=== PATIENT | male | born 1990 | race Caucasian/White ===

== ENCOUNTER 2020-11-07 21:59 | Inpatient (IN) | payer MEDICAID ==
[~2020-11-07] VITALS: Ht 185.4 cm; Wt 118.0 kg
[2020-11-07 23:28] LABS: BASOPHILS # (AUTO) 0.1 X10'3 (0-0.2); BASOPHILS % (AUTO) 0.4 % (0-1); EOSINOPHILS # (AUTO) 0.2 X10'3 (0-0.9); EOSINOPHILS % (AUTO) 1.1 % (0-6); HEMATOCRIT 38.6 % (42.0-52.0); HEMOGLOBIN 12.8 g/dl (14.0-17.9); LYMPHOCYTES # (AUTO) 1.8 X10'3 (1.1-4.8); MEAN CORPUSCULAR HEMOGLOBIN 26.7 PG (27.0-31.0); MEAN CORPUSCULAR HGB CONC 33.1 g/dL (33.0-36.5); MEAN CORPUSCULAR VOLUME 80.8 FL (78-98); MEAN PLATELET VOLUME 8.2 FL (7.4-10.4); MONOCYTES # (AUTO) 1.7 X10'3 (0-0.9); MONOCYTES % (AUTO) 8.9 % (2-12); NEUTROPHILS # (AUTO) 15.7 X10'3 (1.8-7.7); NEUTROPHILS % (AUTO) 80.6 % (42-75); PLATELET COUNT 391 X10'3 (140-440); RED BLOOD COUNT 4.77 X10'6 (4.70-6.10); RED CELL DISTRIBUTION WIDTH 16.2 % (11.5-14.5); WHITE BLOOD COUNT 19.5 X10'3 (4.5-11.0)
[2020-11-07 23:46] LABS: ALANINE AMINOTRANSFERASE 29 U/L (12-78); ALBUMIN 2.4 G/DL (3.4-5.0); ALBUMIN/GLOBULIN RATIO 0.5 (1.1-1.5); ALKALINE PHOSPHATASE 102 IU/L (46-116); ANION GAP 13 (8-16); ASPARTATE AMINO TRANSFERASE 16 U/L (10-37); BILIRUBIN,TOTAL 0.3 MG/DL (0.1-1.0); BLOOD UREA NITROGEN 6 MG/DL (7-18); BUN/CREATININE RATIO 8.1 (5.4-32.0); CALCIUM 8.4 MG/DL (8.5-10.1); CHLORIDE 104 MMOL/L (99-107); CREATININE 0.74 MG/DL (0.60-1.10); GLUCOSE 119 MG/DL (70-104); POTASSIUM 3.1 MMOL/L (3.5-5.1); SODIUM 138 MMOL/L (135-145); TOTAL CARBON DIOXIDE 20.6 MMOL/L (24-32); TOTAL PROTEIN 7.4 G/DL (6.4-8.2); eGFR > 90 ML/MIN
[2020-11-07 23:53] LABS: ANISOCYTOSIS 1+; PLATELET ESTIMATE NORMAL
[2020-11-07 23:54] LABS: BANDS% (MANUAL) 4 % (0-10); LYMPHOCYTES % (MANUAL) 13 % (21-51); MONOCYTES % (MANUAL) 5 % (2-12); NEUTROPHILS % (MANUAL) 73 % (42-75); TOTAL CELLS COUNTED 100
[2020-11-07 23:55] LABS: METAMYLEOCYTES% (MANUAL) 4 % (0-0); MYELOCYTES % (MANUAL) 1 % (0-0)
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
--- NOTE | 2020-11-08 01:43 | NUR ---
Dr. Louise at bedside.
--- NOTE | 2020-11-08 02:48 | NUR ---
Pt repositioned and turned to right side.
--- NOTE | 2020-11-08 03:26 | NUR ---
Dr. Louise updated that Pts lactic is 2.4 and K 3.1. No new orders received.
[2020-11-08] MEDS ORDERED: piperacillin/tazo 3.375gm/50ml 50 ML IV ONE (03:35)
[2020-11-08] MEDS ORDERED: magnesium 4gm in 100ml NS 100 ML IV PRN (03:40)
[2020-11-08] MEDS ORDERED: HYDROcodone/acetaminophen 5mg/325mg tablet PO PRN (03:40)
[2020-11-08] MEDS ORDERED: potassium Cl 40MEQ/1/2NS 520ml 520 ML IV PRN ×2 (03:40)
[2020-11-08] MEDS ORDERED: acetaminophen 325mg tablet PO PRN ×2 (03:40)
[2020-11-08] MEDS ORDERED: magnesium hydroxide 30ml (MOM) UD suspension PO PRN (03:40)
[2020-11-08] MEDS ORDERED: potassium Cl 20 mEq SR tablet PO PRN (03:40)
[2020-11-08] MEDS ORDERED: iohexol 300mg/ml 100ml inj. ONE ×2 (03:40→14:37)
[2020-11-08] MEDS ORDERED: magnesium Cl slow-release 64mg tablet PO PRN (03:40)
[2020-11-08] MEDS ORDERED: morphine 2 MG/ML inj. syringe IV PRN ×2 (03:40)
[2020-11-08] MEDS ORDERED: magnesium 2GM in 50ml NS 50 ML IV PRN (03:40)
[2020-11-08] MEDS ORDERED: APIX5TAB3 PO (03:59)
[2020-11-08] MEDS ORDERED: SPIR25TA5 PO (03:59)
[2020-11-08] MEDS ORDERED: OXYB5TAB16 PO (03:59)
[2020-11-08] MEDS ORDERED: MELO-100 PO (03:59)
--- NOTE | 2020-11-08 04:02 | NUR ---
DR. BAUM CANCELLED THE ORDER FOR CT OF RLE PT HAD ONE DONE YESTERDAY AT [facility] AND THE READ IS IN PTS PACKET. 2 HR LACTIC DRAWN.
[2020-11-08] MEDS: vancomycin/NS 1 GM ADD-VANTAGE 250 ML IV SCH ×2 (04:33→12:59)
--- NOTE | 2020-11-08 05:04 | NUR ---
Pt turned onto right side. mcginnis cath emptied , total 825 cc's out. Pt sleeping intermittently. vss. wound photos taken.
--- NOTE | 2020-11-08 05:50 | NUR ---
dr caputo at bedside for admission.
--- NOTE | 2020-11-08 06:25 | NUR ---
IPA 349B, REPORT TO YASMANY GOMEZ, SURGICAL. PT WITH STABLE VS. REMAINS ON HOSPITAL BED.
--- NOTE | 2020-11-08 06:26 | NUR ---
Patient in room . I have received report from [place] JADE and had the opportunity to ask questions and assume patient care.
[2020-11-08 08:00] VITALS: BP 124/74
[2020-11-08] MEDS: K and/or MAG REPLACEMENT MC SCH ×2 (08:00→20:00)
[2020-11-08] MEDS ORDERED: piperacillin/tazo 4.5gm/100ml 100 ML IV SCH (08:00)
[2020-11-08] MEDS ORDERED: enoxaparin 40mg/0.4ml syringe SUBCUT SCH (08:00)
[2020-11-08 12:00] VITALS: BP 126/77
[2020-11-08] MEDS ORDERED: oxybutynin 5mg tablet PO PRN (13:05)
[2020-11-08] MEDS: cefazolin/dext.iso 2gm/100ml 100 ML IV SCH ×2 (15:44→19:38)
[2020-11-08] MEDS: CLINDAMYCIN/D5W 900mg/50ml 50 ML IV SCH (17:22)
--- NOTE | 2020-11-08 18:16 | NUR ---
Problems reprioritized. Patient report given, questions answered & plan of care reviewed with Jerome JADE.
--- NOTE | 2020-11-08 18:33 | NUR ---
Patient in room FERMIN 349. I have received report from Anahi JADE and had the opportunity to ask questions and assume patient care.
[2020-11-08 19:22] VITALS: BP 109/58
[2020-11-08] MEDS: apixaban 5mg tablet PO SCH (19:39)
[2020-11-08] MEDS: lactobacillus rhamnosus 10,000 MMU CELLS/CAPSULE PO SCH (19:39)
[2020-11-08] MEDS: spironolactone 25 MG tablet PO SCH (19:40)
--- NOTE | 2020-11-08 22:46 | NUR ---
Received report from [facility] that it was unclear if patient had their potassium replaced in the ER, and after discussing the situation with the [facility] charge, they decided to leave the potassium unreplaced and to readdress the potassium in the morning after new labs were drawn. I am following with this plan. Jerome JADE
[2020-11-08] MEDS: normal saline 1000ml 1,000 ML IV SCH (23:33)
[2020-11-09 00:09] VITALS: BP 148/73
[2020-11-09] MEDS: CLINDAMYCIN/D5W 900mg/50ml 50 ML IV SCH ×3 (00:11→16:00)
[2020-11-09] MEDS: diphenhydrAMINE 25mg capsule PO PRN (00:46)
[2020-11-09] MEDS: cefazolin/dext.iso 2gm/100ml 100 ML IV SCH ×4 (02:14→20:18)
[2020-11-09] MEDS ORDERED: VANCOMYCIN LEVEL IV ONE (03:30)
[2020-11-09 04:38] LABS: BASOPHILS # (AUTO) 0.1 X10'3 (0-0.2); BASOPHILS % (AUTO) 0.7 % (0-1); EOSINOPHILS # (AUTO) 0.4 X10'3 (0-0.9); EOSINOPHILS % (AUTO) 2.1 % (0-6); HEMATOCRIT 35.9 % (42.0-52.0); HEMOGLOBIN 11.7 g/dl (14.0-17.9); LYMPHOCYTES % (AUTO) 10.1 % (21-51); MEAN CORPUSCULAR HEMOGLOBIN 25.9 PG (27.0-31.0); MEAN CORPUSCULAR HGB CONC 32.5 g/dL (33.0-36.5); MEAN CORPUSCULAR VOLUME 79.8 FL (78-98); MONOCYTES # (AUTO) 1.3 X10'3 (0-0.9); MONOCYTES % (AUTO) 6.6 % (2-12); NEUTROPHILS # (AUTO) 15.6 X10'3 (1.8-7.7); NEUTROPHILS % (AUTO) 80.5 % (42-75); PLATELET COUNT 407 X10'3 (140-440); RED CELL DISTRIBUTION WIDTH 15.7 % (11.5-14.5); WHITE BLOOD COUNT 19.4 X10'3 (4.5-11.0)
[2020-11-09 04:53] LABS: ALANINE AMINOTRANSFERASE 20 U/L (12-78); ALBUMIN 2.1 G/DL (3.4-5.0); ALBUMIN/GLOBULIN RATIO 0.5 (1.1-1.5); ALKALINE PHOSPHATASE 83 IU/L (46-116); ANION GAP 9 (8-16); ASPARTATE AMINO TRANSFERASE 11 U/L (10-37); BILIRUBIN,TOTAL 0.3 MG/DL (0.1-1.0); BLOOD UREA NITROGEN 8 MG/DL (7-18); CALCIUM 7.8 MG/DL (8.5-10.1); CHLORIDE 107 MMOL/L (99-107); CREATININE 0.57 MG/DL (0.60-1.10); GLUCOSE 91 MG/DL (70-104); POTASSIUM 3.3 MMOL/L (3.5-5.1); SODIUM 140 MMOL/L (135-145); TOTAL CARBON DIOXIDE 23.6 MMOL/L (24-32); TOTAL PROTEIN 6.6 G/DL (6.4-8.2); eGFR > 90 ML/MIN
[2020-11-09 04:54] LABS: MAGNESIUM 2.2 MG/DL (1.5-2.4)
[2020-11-09 05:01] LABS: BANDS% (MANUAL) 2 % (0-10); EOSINOPHILS % (MANUAL) 1 % (0-6); LYMPHOCYTES % (MANUAL) 14 % (21-51); METAMYLEOCYTES% (MANUAL) 2 % (0-0); MONOCYTES % (MANUAL) 5 % (2-12); MYELOCYTES % (MANUAL) 1 % (0-0); NEUTROPHILS % (MANUAL) 75 % (42-75); TOTAL CELLS COUNTED 100
[2020-11-09 05:02] LABS: MICROCYTOSIS 1+; PLATELET ESTIMATE NORMAL
[2020-11-09 06:07] LABS: CHOL/HDL RATIO 4.8 (0.00-4.99); CHOLESTEROL 111 MG/DL (0-200); HDL CHOLESTEROL 23 MG/DL (35-60); TRIGLYCERIDES 107 MG/DL (20-135); VANCOMYCIN,TROUGH 2.5 UG/ML (6.0-14.0)
[2020-11-09 06:08] LABS: LDL CHOLESTEROL 67 MG/DL (50-100)
[2020-11-09 07:00] VITALS: BP 130/81
--- NOTE | 2020-11-09 07:02 | NUR ---
Patient in room FERMIN 349. I have received report from YASMANY Cano and had the opportunity to ask questions and assume patient care.
--- NOTE | 2020-11-09 07:36 | NUR ---
Problems reprioritized. Patient report given, questions answered & plan of care reviewed with Marj JADE.
[2020-11-09] MEDS: K and/or MAG REPLACEMENT MC SCH ×2 (08:00→20:00)
[2020-11-09] MEDS: MELOXICAM 7.5MG TABLET PO SCH (08:00)
[2020-11-09] MEDS: lactobacillus rhamnosus 10,000 MMU CELLS/CAPSULE PO SCH ×2 (08:18→21:32)
[2020-11-09] MEDS: apixaban 5mg tablet PO SCH ×2 (08:18→21:32)
[2020-11-09] MEDS: potassium Cl 20 mEq SR tablet PO PRN ×2 (08:19→21:31)
[2020-11-09] MEDS: spironolactone 25 MG tablet PO SCH ×2 (08:19→21:32)
[2020-11-09 11:00] VITALS: BP 145/86
--- NOTE | 2020-11-09 18:33 | NUR ---
Problems reprioritized. Patient report given, questions answered & plan of care reviewed with Lorenzo Pisano.
--- NOTE | 2020-11-09 18:35 | NUR ---
Patient in room FERMIN 349. I have received report from MELISSA JADE and had the opportunity to ask questions and assume patient care.
[2020-11-09 20:00] VITALS: BP 124/77
[2020-11-09] MEDS: ondansetron/PF 4mg/2ml inj IV PRN (20:22)
[2020-11-09] MEDS: mag hydrox/Alum hydrox/simeth 30ml oral suspension PO PRN (21:33)
[2020-11-10] VITALS: BP 149/81
[2020-11-10] MEDS: CLINDAMYCIN/D5W 900mg/50ml 50 ML IV SCH ×4 (00:28→23:29)
[2020-11-10] MEDS: cefazolin/dext.iso 2gm/100ml 100 ML IV SCH ×4 (02:20→21:17)
--- NOTE | 2020-11-10 06:39 | NUR ---
Patient in room FERMIN 349. I have received report from YASMANY Pisano and had the opportunity to ask questions and assume patient care.
[2020-11-10 07:00] VITALS: BP 120/44
[2020-11-10 07:12] LABS: BASOPHILS # (AUTO) 0.1 X10'3 (0-0.2); BASOPHILS % (AUTO) 0.4 % (0-1); EOSINOPHILS # (AUTO) 0.4 X10'3 (0-0.9); EOSINOPHILS % (AUTO) 2.3 % (0-6); HEMATOCRIT 36.1 % (42.0-52.0); HEMOGLOBIN 11.8 g/dl (14.0-17.9); LYMPHOCYTES # (AUTO) 1.7 X10'3 (1.1-4.8); LYMPHOCYTES % (AUTO) 11.4 % (21-51); MEAN CORPUSCULAR HEMOGLOBIN 26.1 PG (27.0-31.0); MEAN CORPUSCULAR HGB CONC 32.7 g/dL (33.0-36.5); MEAN CORPUSCULAR VOLUME 79.8 FL (78-98); MEAN PLATELET VOLUME 8.2 FL (7.4-10.4); MONOCYTES # (AUTO) 1.1 X10'3 (0-0.9); MONOCYTES % (AUTO) 7.3 % (2-12); NEUTROPHILS % (AUTO) 78.6 % (42-75); PLATELET COUNT 497 X10'3 (140-440); RED BLOOD COUNT 4.52 X10'6 (4.70-6.10); RED CELL DISTRIBUTION WIDTH 16.1 % (11.5-14.5); WHITE BLOOD COUNT 15.3 X10'3 (4.5-11.0)
[2020-11-10 07:25] LABS: ALANINE AMINOTRANSFERASE 18 U/L (12-78); ALBUMIN 2.3 G/DL (3.4-5.0); ALBUMIN/GLOBULIN RATIO 0.5 (1.1-1.5); ALKALINE PHOSPHATASE 84 IU/L (46-116); ANION GAP 10 (8-16); ASPARTATE AMINO TRANSFERASE 14 U/L (10-37); BILIRUBIN,TOTAL 0.3 MG/DL (0.1-1.0); BLOOD UREA NITROGEN 6 MG/DL (7-18); BUN/CREATININE RATIO 9.5 (5.4-32.0); CALCIUM 7.8 MG/DL (8.5-10.1); CHLORIDE 107 MMOL/L (99-107); CREATININE 0.63 MG/DL (0.60-1.10); GLUCOSE 82 MG/DL (70-104); MAGNESIUM 2.5 MG/DL (1.5-2.4); POTASSIUM 3.3 MMOL/L (3.5-5.1); SODIUM 140 MMOL/L (135-145); TOTAL CARBON DIOXIDE 23.3 MMOL/L (24-32); TOTAL PROTEIN 7.1 G/DL (6.4-8.2); eGFR > 90 ML/MIN
[2020-11-10] MEDS: lactobacillus rhamnosus 10,000 MMU CELLS/CAPSULE PO SCH ×2 (07:44→21:17)
[2020-11-10] MEDS: apixaban 5mg tablet PO SCH ×2 (07:44→21:18)
[2020-11-10] MEDS: potassium Cl 20 mEq SR tablet PO PRN ×4 (07:45→17:49)
[2020-11-10] MEDS: spironolactone 25 MG tablet PO SCH ×2 (07:47→21:20)
[2020-11-10] MEDS: MELOXICAM 7.5MG TABLET PO SCH (07:47)
[2020-11-10] MEDS: K and/or MAG REPLACEMENT MC SCH ×2 (08:00→20:00)
[2020-11-10 11:00] VITALS: BP 134/84
[2020-11-10] MEDS ORDERED: bisacodyl 10mg suppository rectal RC PRN (11:35)
[2020-11-10 15:25] LABS: ANISOCYTOSIS 1+; MICROCYTOSIS 1+; PLATELET ESTIMATE INCREASED; TOTAL CELLS COUNTED 100
[2020-11-10] MEDS: baclofen 10mg tablet PO SCH ×2 (16:48→21:18)
[2020-11-10] MEDS: lactulose 20gm/30ml cup PO SCH (17:49)
--- NOTE | 2020-11-10 18:42 | NUR ---
Problems reprioritized. Patient report given, questions answered & plan of care reviewed with YASMANY Pisano.
[2020-11-10 20:00] VITALS: BP_SYST 116; BP_SYST 137; BP_DIAS 59; BP_DIAS 83
[2020-11-10] MEDS ORDERED: lactulose 20gm/30ml cup PO SCH (20:00)
[2020-11-10] MEDS: normal saline 1000ml 1,000 ML IV SCH (21:22)
[2020-11-10] MEDS: nystatin 15 GM powder TP SCH (21:25)
[2020-11-10] MEDS: ondansetron/PF 4mg/2ml inj IV PRN (23:26)
[2020-11-11] VITALS: BP 137/83
[2020-11-11] MEDS: lactulose 20gm/30ml cup PO SCH ×6 (02:00→20:00)
[2020-11-11] MEDS: cefazolin/dext.iso 2gm/100ml 100 ML IV SCH ×4 (02:57→20:42)
[2020-11-11 06:48] LABS: BASOPHILS # (AUTO) 0.1 X10'3 (0-0.2); BASOPHILS % (AUTO) 0.4 % (0-1); EOSINOPHILS # (AUTO) 0.1 X10'3 (0-0.9); EOSINOPHILS % (AUTO) 0.3 % (0-6); HEMATOCRIT 38.2 % (42.0-52.0); HEMOGLOBIN 12.4 g/dl (14.0-17.9); LYMPHOCYTES # (AUTO) 1.1 X10'3 (1.1-4.8); LYMPHOCYTES % (AUTO) 3.9 % (21-51); MEAN CORPUSCULAR HEMOGLOBIN 26.5 PG (27.0-31.0); MEAN CORPUSCULAR HGB CONC 32.6 g/dL (33.0-36.5); MEAN CORPUSCULAR VOLUME 81.2 FL (78-98); MEAN PLATELET VOLUME 8.4 FL (7.4-10.4); MONOCYTES # (AUTO) 0.7 X10'3 (0-0.9); MONOCYTES % (AUTO) 2.4 % (2-12); NEUTROPHILS # (AUTO) 26.7 X10'3 (1.8-7.7); PLATELET COUNT 569 X10'3 (140-440); RED CELL DISTRIBUTION WIDTH 16.1 % (11.5-14.5)
--- NOTE | 2020-11-11 06:50 | NUR ---
Problems reprioritized. Patient report given, questions answered & plan of care reviewed with FAYE JADE.
[2020-11-11 06:56] LABS: WHITE BLOOD COUNT 28.7 X10'3 (4.5-11.0)
[2020-11-11 07:00] VITALS: BP 151/93
[2020-11-11 07:16] LABS: ALANINE AMINOTRANSFERASE 19 U/L (12-78); ALBUMIN 2.5 G/DL (3.4-5.0); ALBUMIN/GLOBULIN RATIO 0.5 (1.1-1.5); ALKALINE PHOSPHATASE 86 IU/L (46-116); ANION GAP 11 (8-16); ASPARTATE AMINO TRANSFERASE 19 U/L (10-37); BILIRUBIN,TOTAL 0.3 MG/DL (0.1-1.0); BLOOD UREA NITROGEN 6 MG/DL (7-18); BUN/CREATININE RATIO 10.2 (5.4-32.0); CALCIUM 8.2 MG/DL (8.5-10.1); CHLORIDE 105 MMOL/L (99-107); CREATININE 0.59 MG/DL (0.60-1.10); GLUCOSE 111 MG/DL (70-104); MAGNESIUM 2.2 MG/DL (1.5-2.4); POTASSIUM 4.2 MMOL/L (3.5-5.1); SODIUM 139 MMOL/L (135-145); TOTAL PROTEIN 7.6 G/DL (6.4-8.2); eGFR > 90 ML/MIN
--- NOTE | 2020-11-11 07:23 | NUR ---
PAGER ID: [phone] MESSAGE: Ajay Ye 349B increase in WBC critical value 28.7. Want more BC now? Carolina [id number]
[2020-11-11 07:55] LABS: TOTAL CELLS COUNTED 100
[2020-11-11 07:56] LABS: ANISOCYTOSIS 1+; PLATELET ESTIMATE INCREASED; POLYCHROMASIA 1+; TOXIC GRANULATION 1+
[2020-11-11] MEDS: K and/or MAG REPLACEMENT MC SCH ×2 (08:00→20:00)
[2020-11-11] MEDS: CLINDAMYCIN/D5W 900mg/50ml 50 ML IV SCH ×2 (08:54→16:00)
[2020-11-11] MEDS: spironolactone 25 MG tablet PO SCH ×2 (08:55→20:45)
[2020-11-11] MEDS: lactobacillus rhamnosus 10,000 MMU CELLS/CAPSULE PO SCH ×2 (08:56→20:45)
[2020-11-11] MEDS: apixaban 5mg tablet PO SCH (08:57)
[2020-11-11] MEDS: baclofen 10mg tablet PO SCH ×2 (08:57→15:17)
[2020-11-11] MEDS: HYDROcodone/acetaminophen 10/325mg tab PO PRN ×2 (08:58→17:23)
[2020-11-11] MEDS: nystatin 15 GM powder TP SCH ×3 (09:03→20:53)
[2020-11-11 11:00] VITALS: BP 135/64
[2020-11-11 11:02] LABS: OCCULT BLOOD STOOL POSITIVE (Neg)
--- NOTE | 2020-11-11 13:57 | NUR ---
PAGER ID: [phone] MESSAGE: Ajay Ye [id number] Just FYI occult positive. Protonix? Carolina [id number]
[2020-11-11 14:32] LABS: HEMATOCRIT 35.9 % (42.0-52.0); HEMOGLOBIN 11.6 g/dl (14.0-17.9); MEAN CORPUSCULAR HEMOGLOBIN 26.3 PG (27.0-31.0); MEAN CORPUSCULAR HGB CONC 32.3 g/dL (33.0-36.5); MEAN CORPUSCULAR VOLUME 81.3 FL (78-98); PLATELET COUNT 489 X10'3 (140-440); RED BLOOD COUNT 4.42 X10'6 (4.70-6.10); WHITE BLOOD COUNT 23.5 X10'3 (4.5-11.0)
[2020-11-11] MEDS: pantoprazole 40MG/NS 100ML BAG 100 ML IV SCH ×3 (14:48→19:18)
[2020-11-11 18:00] VITALS: BP 121/57
--- NOTE | 2020-11-11 18:25 | NUR ---
Gave report to Sonia Scott RN. She is aware pt. scheduled for EGD in AM at 8am.
--- NOTE | 2020-11-11 19:10 | NUR ---
Spoke with [place] community health worker about getting a wound care bed for this pt. States the person who provides these beds is gone for the weekend but that she will look into it and check downstairs.
[2020-11-11 20:59] LABS: HEMATOCRIT 35.3 % (42.0-52.0); HEMOGLOBIN 11.4 g/dl (14.0-17.9); MEAN CORPUSCULAR HEMOGLOBIN 26.1 PG (27.0-31.0); MEAN CORPUSCULAR HGB CONC 32.2 g/dL (33.0-36.5); MEAN CORPUSCULAR VOLUME 81.2 FL (78-98); MEAN PLATELET VOLUME 8.6 FL (7.4-10.4); PLATELET COUNT 496 X10'3 (140-440); RED BLOOD COUNT 4.35 X10'6 (4.70-6.10); RED CELL DISTRIBUTION WIDTH 15.9 % (11.5-14.5); WHITE BLOOD COUNT 21.3 X10'3 (4.5-11.0)
[2020-11-12] VITALS (9 sets, daily range): BP systolic 95–187; BP diastolic 62–96
[2020-11-12] MEDS: pantoprazole 40MG/NS 100ML BAG 100 ML IV SCH ×5 (00:35→19:51)
[2020-11-12] MEDS: CLINDAMYCIN/D5W 900mg/50ml 50 ML IV SCH ×3 (00:35→16:44)
[2020-11-12] MEDS: baclofen 10mg tablet PO SCH ×3 (00:37→16:44)
[2020-11-12] MEDS: lactulose 20gm/30ml cup PO SCH ×4 (02:00→19:54)
[2020-11-12] MEDS: cefazolin/dext.iso 2gm/100ml 100 ML IV SCH ×4 (04:33→20:09)
[2020-11-12 05:33] LABS: BASOPHILS # (AUTO) 0.1 X10'3 (0-0.2); BASOPHILS % (AUTO) 0.5 % (0-1); EOSINOPHILS # (AUTO) 0.5 X10'3 (0-0.9); EOSINOPHILS % (AUTO) 2.6 % (0-6); HEMATOCRIT 35.2 % (42.0-52.0); HEMOGLOBIN 11.4 g/dl (14.0-17.9); LYMPHOCYTES # (AUTO) 2.1 X10'3 (1.1-4.8); LYMPHOCYTES % (AUTO) 11.2 % (21-51); MEAN CORPUSCULAR HEMOGLOBIN 26.5 PG (27.0-31.0); MEAN CORPUSCULAR HGB CONC 32.4 g/dL (33.0-36.5); MEAN CORPUSCULAR VOLUME 81.9 FL (78-98); MEAN PLATELET VOLUME 8.4 FL (7.4-10.4); MONOCYTES # (AUTO) 1.1 X10'3 (0-0.9); MONOCYTES % (AUTO) 6.1 % (2-12); NEUTROPHILS # (AUTO) 14.8 X10'3 (1.8-7.7); NEUTROPHILS % (AUTO) 79.6 % (42-75); PLATELET COUNT 522 X10'3 (140-440); RED CELL DISTRIBUTION WIDTH 15.9 % (11.5-14.5); WHITE BLOOD COUNT 18.6 X10'3 (4.5-11.0)
[2020-11-12 05:43] LABS: ALANINE AMINOTRANSFERASE 17 U/L (12-78); ALBUMIN 2.5 G/DL (3.4-5.0); ALBUMIN/GLOBULIN RATIO 0.5 (1.1-1.5); ALKALINE PHOSPHATASE 79 IU/L (46-116); ANION GAP 10 (8-16); ASPARTATE AMINO TRANSFERASE 17 U/L (10-37); BILIRUBIN,TOTAL 0.2 MG/DL (0.1-1.0); BLOOD UREA NITROGEN 8 MG/DL (7-18); BUN/CREATININE RATIO 12.5 (5.4-32.0); CALCIUM 8.1 MG/DL (8.5-10.1); CHLORIDE 106 MMOL/L (99-107); CREATININE 0.64 MG/DL (0.60-1.10); GLUCOSE 93 MG/DL (70-104); MAGNESIUM 1.9 MG/DL (1.5-2.4); POTASSIUM 3.7 MMOL/L (3.5-5.1); SODIUM 142 MMOL/L (135-145); TOTAL PROTEIN 7.2 G/DL (6.4-8.2); eGFR > 90 ML/MIN
--- NOTE | 2020-11-12 06:30 | NUR ---
Problems reprioritized. Patient report given, questions answered & plan of care reviewed with JUSTIN JADE.
[2020-11-12 06:35] LABS: ANISOCYTOSIS 1+; MICROCYTOSIS 1+; PLATELET ESTIMATE INCREASED; POIKILOCYTOSIS FEW; TOTAL CELLS COUNTED 100
[2020-11-12] MEDS ORDERED: LIDOcaine Viscous 15ml cup ONE (07:43)
[2020-11-12] MEDS ORDERED: fentaNYL/PF 50MCG/1 ML 2ML syringe ONE (07:43)
[2020-11-12] MEDS ORDERED: MIDAZolam 1 MG/ML 5ML VIAL ONE (07:43)
[2020-11-12] MEDS: K and/or MAG REPLACEMENT MC SCH ×2 (08:00→20:00)
[2020-11-12] MEDS: lactobacillus rhamnosus 10,000 MMU CELLS/CAPSULE PO SCH ×2 (10:23→19:54)
[2020-11-12] MEDS: spironolactone 25 MG tablet PO SCH ×2 (10:23→19:58)
[2020-11-12] MEDS: nystatin 15 GM powder TP SCH ×3 (10:25→19:52)
[2020-11-12 14:14] LABS: HEMATOCRIT 36.3 % (42.0-52.0); MEAN CORPUSCULAR HEMOGLOBIN 26.5 PG (27.0-31.0); MEAN CORPUSCULAR VOLUME 80.3 FL (78-98); MEAN PLATELET VOLUME 8.1 FL (7.4-10.4); PLATELET COUNT 517 X10'3 (140-440); RED BLOOD COUNT 4.52 X10'6 (4.70-6.10); RED CELL DISTRIBUTION WIDTH 15.8 % (11.5-14.5); WHITE BLOOD COUNT 16.6 X10'3 (4.5-11.0)
[2020-11-12] MEDS: normal saline 1000ml 1,000 ML IV SCH (16:54)
[2020-11-12 19:52] LABS: HEMATOCRIT 37.5 % (42.0-52.0); HEMOGLOBIN 12.3 g/dl (14.0-17.9); MEAN CORPUSCULAR HEMOGLOBIN 26.7 PG (27.0-31.0); MEAN CORPUSCULAR HGB CONC 32.7 g/dL (33.0-36.5); MEAN CORPUSCULAR VOLUME 81.4 FL (78-98); MEAN PLATELET VOLUME 8.3 FL (7.4-10.4); PLATELET COUNT 547 X10'3 (140-440); RED BLOOD COUNT 4.61 X10'6 (4.70-6.10); RED CELL DISTRIBUTION WIDTH 15.9 % (11.5-14.5); WHITE BLOOD COUNT 21.8 X10'3 (4.5-11.0)
[2020-11-12] MEDS: ondansetron/PF 4mg/2ml inj IV PRN (21:35)
[2020-11-13] VITALS: BP 128/86
[2020-11-13] MEDS: CLINDAMYCIN/D5W 900mg/50ml 50 ML IV SCH ×3 (00:19→15:12)
[2020-11-13] MEDS: baclofen 10mg tablet PO SCH ×3 (00:19→15:12)
[2020-11-13] MEDS: pantoprazole 40MG/NS 100ML BAG 100 ML IV SCH ×3 (00:25→11:06)
[2020-11-13] MEDS: cefazolin/dext.iso 2gm/100ml 100 ML IV SCH ×4 (02:51→20:05)
[2020-11-13] MEDS: lactulose 20gm/30ml cup PO SCH ×4 (02:51→20:00)
--- NOTE | 2020-11-13 06:30 | NUR ---
Problems reprioritized. Patient report given, questions answered & plan of care reviewed with JUSTIN JADE.
[2020-11-13 07:24] LABS: BASOPHILS % (AUTO) 0.2 % (0-1); EOSINOPHILS # (AUTO) 0.1 X10'3 (0-0.9); EOSINOPHILS % (AUTO) 0.8 % (0-6); HEMATOCRIT 36.6 % (42.0-52.0); HEMOGLOBIN 11.9 g/dl (14.0-17.9); LYMPHOCYTES # (AUTO) 1.4 X10'3 (1.1-4.8); LYMPHOCYTES % (AUTO) 7.7 % (21-51); MEAN CORPUSCULAR HEMOGLOBIN 26.3 PG (27.0-31.0); MEAN CORPUSCULAR HGB CONC 32.6 g/dL (33.0-36.5); MEAN CORPUSCULAR VOLUME 80.8 FL (78-98); MEAN PLATELET VOLUME 8.2 FL (7.4-10.4); MONOCYTES # (AUTO) 0.9 X10'3 (0-0.9); NEUTROPHILS % (AUTO) 86.3 % (42-75); PLATELET COUNT 566 X10'3 (140-440); RED BLOOD COUNT 4.54 X10'6 (4.70-6.10); RED CELL DISTRIBUTION WIDTH 16.1 % (11.5-14.5); WHITE BLOOD COUNT 18.5 X10'3 (4.5-11.0)
[2020-11-13 07:25] VITALS: BP 140/92
[2020-11-13 07:30] LABS: ALANINE AMINOTRANSFERASE 13 U/L (12-78); ALBUMIN 2.6 G/DL (3.4-5.0); ALBUMIN/GLOBULIN RATIO 0.5 (1.1-1.5); ALKALINE PHOSPHATASE 83 IU/L (46-116); ANION GAP 11 (8-16); ASPARTATE AMINO TRANSFERASE 13 U/L (10-37); BILIRUBIN,TOTAL 0.3 MG/DL (0.1-1.0); BLOOD UREA NITROGEN 5 MG/DL (7-18); BUN/CREATININE RATIO 7.8 (5.4-32.0); CHLORIDE 104 MMOL/L (99-107); CREATININE 0.64 MG/DL (0.60-1.10); GLUCOSE 105 MG/DL (70-104); POTASSIUM 3.7 MMOL/L (3.5-5.1); SODIUM 140 MMOL/L (135-145); TOTAL CARBON DIOXIDE 24.8 MMOL/L (24-32); TOTAL PROTEIN 7.5 G/DL (6.4-8.2); eGFR > 90 ML/MIN
[2020-11-13] MEDS: spironolactone 25 MG tablet PO SCH ×2 (07:56→20:07)
[2020-11-13] MEDS: lactobacillus rhamnosus 10,000 MMU CELLS/CAPSULE PO SCH ×2 (07:56→20:07)
[2020-11-13 07:58] LABS: TOTAL CELLS COUNTED 100
[2020-11-13 07:59] LABS: ANISOCYTOSIS 1+; PLATELET ESTIMATE INCREASED
[2020-11-13 08:00] LABS: POLYCHROMASIA FEW; STOMATOCYTES FEW
[2020-11-13] MEDS: K and/or MAG REPLACEMENT MC SCH ×2 (08:00→20:00)
[2020-11-13] MEDS: nystatin 15 GM powder TP SCH ×3 (08:06→20:16)
--- NOTE | 2020-11-13 12:11 | NUR ---
Initial: Pt admitted w/ RLE pain and swelling. Pt s/p upper endoscopy 11/12 finding gastric esophagitis and nonbleeding ulcer. Pt able to eat moderately well, avg 55% x 9 meals which meets 73% of est eneryg needs and 64% of est protein needs. No N/V/D reported, LBM 11/12. No nutritional diagnosis at this time, will continue to monitor. Rec: 1. Continue reguarl diet, encourage PO intake 2. Bowel care per rx 3. Scaled weight this admit, weekly wts thereafter Addendum: 11/13/20 at [address] Amended: Links added.
[2020-11-13 12:32] VITALS: BP 136/79
[2020-11-13] MEDS: mag hydrox/Alum hydrox/simeth 30ml oral suspension PO PRN (15:12)
[2020-11-13 18:00] VITALS: BP 134/81
--- NOTE | 2020-11-13 18:32 | NUR ---
Patient in room FERMIN 349. I have received report from Tez JADE and had the opportunity to ask questions and assume patient care.
[2020-11-13] MEDS: pantoprazole 40mg Tablet.DR PO SCH (20:07)
[2020-11-13] MEDS: diphenhydrAMINE 25mg capsule PO PRN (20:08)
[2020-11-14] VITALS: BP 164/93
[2020-11-14] MEDS: baclofen 10mg tablet PO SCH ×2 (00:17→07:59)
[2020-11-14] MEDS: CLINDAMYCIN/D5W 900mg/50ml 50 ML IV SCH (00:19)
[2020-11-14] MEDS: lactulose 20gm/30ml cup PO SCH ×2 (02:00→08:00)
[2020-11-14] MEDS: cefazolin/dext.iso 2gm/100ml 100 ML IV SCH ×2 (02:16→10:21)
[2020-11-14 02:25] VITALS: BP 148/72
[2020-11-14] MEDS: ondansetron/PF 4mg/2ml inj IV PRN (05:34)
[2020-11-14 06:36] LABS: BASOPHILS % (AUTO) 0.2 % (0-1); EOSINOPHILS # (AUTO) 0.1 X10'3 (0-0.9); EOSINOPHILS % (AUTO) 0.3 % (0-6); HEMATOCRIT 40.2 % (42.0-52.0); HEMOGLOBIN 13.2 g/dl (14.0-17.9); LYMPHOCYTES # (AUTO) 1.1 X10'3 (1.1-4.8); LYMPHOCYTES % (AUTO) 5.5 % (21-51); MEAN CORPUSCULAR HEMOGLOBIN 26.4 PG (27.0-31.0); MEAN CORPUSCULAR HGB CONC 32.7 g/dL (33.0-36.5); MEAN CORPUSCULAR VOLUME 80.7 FL (78-98); MEAN PLATELET VOLUME 8.8 FL (7.4-10.4); MONOCYTES % (AUTO) 4.9 % (2-12); NEUTROPHILS # (AUTO) 17.6 X10'3 (1.8-7.7); NEUTROPHILS % (AUTO) 89.1 % (42-75); PLATELET COUNT 599 X10'3 (140-440); RED BLOOD COUNT 4.99 X10'6 (4.70-6.10); RED CELL DISTRIBUTION WIDTH 16.4 % (11.5-14.5); WHITE BLOOD COUNT 19.8 X10'3 (4.5-11.0)
[2020-11-14 06:54] LABS: ALBUMIN 2.7 G/DL (3.4-5.0); ANION GAP 14 (8-16); BLOOD UREA NITROGEN 6 MG/DL (7-18); BUN/CREATININE RATIO 9.7 (5.4-32.0); CALCIUM 8.1 MG/DL (8.5-10.1); CHLORIDE 102 MMOL/L (99-107); CREATININE 0.62 MG/DL (0.60-1.10); GLUCOSE 117 MG/DL (70-104); SODIUM 138 MMOL/L (135-145); TOTAL CARBON DIOXIDE 22.1 MMOL/L (24-32); eGFR > 90 ML/MIN
[2020-11-14 06:57] LABS: POTASSIUM 2.9 MMOL/L (3.5-5.1)
[2020-11-14] MEDS ORDERED: potassium Cl 40MEQ/1/2NS 520ml 520 ML IV PRN (07:05)
[2020-11-14] MEDS ORDERED: potassium Cl 20 mEq SR tablet PO PRN (07:05)
[2020-11-14] MEDS ORDERED: magnesium 4gm in 100ml NS 100 ML IV PRN (07:05)
[2020-11-14] MEDS ORDERED: magnesium 2GM in 50ml NS 50 ML IV PRN (07:05)
[2020-11-14] MEDS ORDERED: magnesium Cl slow-release 64mg tablet PO PRN (07:05)
[2020-11-14] MEDS: pantoprazole 40mg Tablet.DR PO SCH (07:58)
[2020-11-14] MEDS: potassium Cl 20 mEq SR tablet PO PRN ×2 (07:58→12:09)
[2020-11-14] MEDS: lactobacillus rhamnosus 10,000 MMU CELLS/CAPSULE PO SCH (07:58)
[2020-11-14 08:00] VITALS: BP 117/70
[2020-11-14] MEDS ORDERED: clindamycin-Cleocin 900mg/D5W 50 ML IV SCH (08:00)
[2020-11-14] MEDS: spironolactone 25 MG tablet PO SCH (08:00)
[2020-11-14] MEDS: nystatin 15 GM powder TP SCH ×2 (08:02→13:00)
[2020-11-14] MEDS: K and/or MAG REPLACEMENT MC SCH (08:02)
[2020-11-14] MEDS ORDERED: CEPH-585 PO (10:46)
[2020-11-14 11:40] VITALS: BP 98/58
[2020-11-14] MEDS ORDERED: PANT-47 PO (14:00)
--- NOTE | 2020-11-14 15:16 | NUR ---
PT DISCHARGED WITH UNCLE TO HOME IN [place]. ALL BELONGINGS TAKEN FROM ROOM. MEDS RETURNED FROM PHARMACY. 2X IV TAKEN OUT, PT WILL FOLLOW UP WITH EXISTING WOUND CARE IN [place] BUT HAS BACK UP SUPPLIES FOR CHANGES OF FOOT WOUND UNTIL SEEN. HE WILL ALSO FOLLOW UP WITH PCP. 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 NO CURRENT CONCERNS. PT AT BASELINE AND APPROPRIATE FOR DISCHARGE.
== END 2020-11-14 15:15 | disposition home health service (06) | DRG 383 ==
LOC: ER 22:00 → SUR 3N 11-08 05:58
PROVIDERS: ADMIT Internal Medicine; ATTEND Family Medicine
PROC: 0DB68ZX Excision of Stomach, Via Natural or Artificial Opening Endoscopic, Diagnostic (ICD-10-PCS; principal; 2020-11-12)
DX: L03.115 Cellulitis of right lower limb (principal); G82.54 Quadriplegia, C5-C7 incomplete; K29.71 Gastritis, unspecified, with bleeding; F12.90 Cannabis use, unspecified, uncomplicated; E87.6 Hypokalemia; D72.829 Elevated white blood cell count, unspecified; E66.01 Morbid (severe) obesity due to excess calories; Z90.49 Acquired absence of other specified parts of digestive tract; Z99.3 Dependence on wheelchair; Z86.718 Personal history of other venous thrombosis and embolism; Z68.34 Body mass index [BMI] 34.0-34.9, adult; K21.01 Gastro-esophageal reflux disease with esophagitis, with bleeding
CPT/HCPCS: 36415; 43239; 71045; 73630; 73701; 80048; 80053; 80061; 80202; 82272; 83036; 83605; 83735; 84132; 84145; 85007; 85025; 85027; 87040; 87081; 93970; 96374; 99152; 99285; A4620; C9113; G0378; J1650; J2250; J2270; J2405; J2543; J3010; J3370; J3490; J7030; J7040; Q0163; Q9967

== ENCOUNTER 2021-01-24 14:25 | Inpatient (IN) | payer MEDICAID ==
[~2021-01-24] VITALS: Ht 185.4 cm; Wt 120.5 kg
[~2021-01-24 14:25] MED LIST: CEPH-585 PO; MELO-100 PO; OXYB5TAB16 PO; PANT-47 PO; SPIR25TA5 PO
[2021-01-24 15:13] LABS: BASOPHILS % (AUTO) 0.1 % (0-1); EOSINOPHILS % (AUTO) 0 % (0-6); HEMATOCRIT 38.9 % (42.0-52.0); HEMOGLOBIN 12.2 g/dl (14.0-17.9); LYMPHOCYTES # (AUTO) 0.7 X10'3 (1.1-4.8); LYMPHOCYTES % (AUTO) 2.9 % (21-51); MEAN CORPUSCULAR HEMOGLOBIN 24.1 PG (27.0-31.0); MEAN CORPUSCULAR HGB CONC 31.3 g/dL (33.0-36.5); MEAN CORPUSCULAR VOLUME 77.1 FL (78-98); MEAN PLATELET VOLUME 8.6 FL (7.4-10.4); MONOCYTES # (AUTO) 0.5 X10'3 (0-0.9); MONOCYTES % (AUTO) 1.9 % (2-12); NEUTROPHILS # (AUTO) 23.7 X10'3 (1.8-7.7); NEUTROPHILS % (AUTO) 95.1 % (42-75); PLATELET COUNT 359 X10'3 (140-440); RED BLOOD COUNT 5.04 X10'6 (4.70-6.10); RED CELL DISTRIBUTION WIDTH 16.8 % (11.5-14.5); WHITE BLOOD COUNT 24.9 X10'3 (4.5-11.0)
[2021-01-24 15:30] LABS: ALANINE AMINOTRANSFERASE 26 U/L (12-78); ALBUMIN/GLOBULIN RATIO 0.6 (1.1-1.5); ALKALINE PHOSPHATASE 82 IU/L (46-116); ANION GAP 12 (8-16); ASPARTATE AMINO TRANSFERASE 15 U/L (10-37); BILIRUBIN,TOTAL 0.6 MG/DL (0.1-1.0); BLOOD UREA NITROGEN 12 MG/DL (7-18); BUN/CREATININE RATIO 16.7 (5.4-32.0); CALCIUM 8.4 MG/DL (8.5-10.1); CHLORIDE 104 MMOL/L (99-107); CREATININE 0.72 MG/DL (0.60-1.10); GLUCOSE 89 MG/DL (70-104); POTASSIUM 3.9 MMOL/L (3.5-5.1); SODIUM 139 MMOL/L (135-145); TOTAL CARBON DIOXIDE 23.3 MMOL/L (24-32); TOTAL PROTEIN 7.9 G/DL (6.4-8.2); eGFR > 90 ML/MIN
[2021-01-24] MEDS ORDERED: acetaminophen 325mg tablet PO STA (15:59)
[2021-01-24] MEDS ORDERED: piperacillin/tazo 3.375gm/50ml 50 ML IV ONE (16:00)
[2021-01-24] MEDS ORDERED: vancomycin/NS 1 GM ADD-VANTAGE 250 ML IV ONE (16:00)
[2021-01-24] MEDS ORDERED: normal saline 1000ML IV soln IV ONE (16:00)
[2021-01-24] MEDS ORDERED: iohexol 300mg/ml 100ml inj. ONE (17:06)
[2021-01-24 17:35] LABS: CLARITY,URINE TURBID (Clear); COLOR,URINE YELLOW (Yellow); GLUCOSE, URINE NEGATIVE (Neg); KETONES,URINE NEGATIVE (Neg); NITRITES, URINE NEGATIVE (Neg); OCCULT BLOOD,URINE LARGE (Neg); PROTEIN,URINE 100 mg/dl (Neg); UA COLLECTION TYPE FOLEY CATH
[2021-01-24 17:36] LABS: LEUKOCYTE ESTERASE ,URINE MODERATE (Neg); UROBILINOGEN,URINE 0.2 E.U/dL (0.2-1.0)
[2021-01-24 17:40] LABS: SQUAMOUS EPITHELIAL CELL,UR FEW /LPF (FEW)
[2021-01-24 17:43] LABS: BACTERIA,URINE 2+ /HPF (Neg); RBC,URINE 0-2 /HPF (0-2); WBC,URINE TNTC /HPF (0-4); YEAST MANY /HPF (NEGATIVE)
[2021-01-24] MEDS ORDERED: potassium Cl 40MEQ/1/2NS 520ml 520 ML IV PRN ×2 (19:35)
[2021-01-24] MEDS ORDERED: magnesium Cl slow-release 64mg tablet PO PRN (19:35)
[2021-01-24] MEDS: normal saline 1000ml 1,000 ML IV SCH (19:35)
[2021-01-24] MEDS ORDERED: ondansetron/PF 4mg/2ml inj IV PRN (19:35)
[2021-01-24] MEDS ORDERED: cefepime 1GM/NS ADD-VANTAGE 100 ML IV ONE (19:35)
[2021-01-24] MEDS ORDERED: magnesium 2GM in 50ml NS 50 ML IV PRN (19:35)
[2021-01-24] MEDS ORDERED: morphine 2 MG/ML inj. syringe IV PRN (19:35)
[2021-01-24] MEDS ORDERED: magnesium 4gm in 100ml NS 100 ML IV PRN (19:35)
[2021-01-24] MEDS ORDERED: potassium Cl 20 mEq SR tablet PO PRN (19:35)
[2021-01-24] MEDS ORDERED: MELO-102 PO (19:44)
[2021-01-24] MEDS ORDERED: PANT40TA54 PO (19:44)
[2021-01-24] MEDS ORDERED: NITR100C11 PO (19:44)
[2021-01-24] MEDS ORDERED: DICL100G30 TOP (19:44)
[2021-01-24] MEDS ORDERED: SOLI10TA7 PO (19:44)
[2021-01-24] MEDS ORDERED: SPIR100T5 PO (19:44)
[2021-01-24] MEDS ORDERED: BACL20TA7 PO (19:44)
[2021-01-24] MEDS ORDERED: METH1TAB32 PO (19:44)
[2021-01-24] MEDS: K and/or MAG REPLACEMENT MC SCH (20:00)
[2021-01-24] MEDS ORDERED: vancomycin/NS 1 GM ADD-VANTAGE 250 ML IV SCH (20:00)
[2021-01-24] MEDS ORDERED: cefepime 1GM in D5W 50mL 50 ML IV ONE (21:30)
[2021-01-24 22:00] VITALS: BP 134/75
[2021-01-25] MEDS: acetaminophen 325mg tablet PO PRN ×2 (00:59→16:11)
[2021-01-25] MEDS: normal saline 1000ml 1,000 ML IV SCH ×2 (06:16→15:35)
[2021-01-25 07:02] VITALS: BP 107/49
[2021-01-25] MEDS: K and/or MAG REPLACEMENT MC SCH ×2 (08:00→19:15)
[2021-01-25 08:10] LABS: BASOPHILS % (AUTO) 0.2 % (0-1); EOSINOPHILS % (AUTO) 0 % (0-6); HEMATOCRIT 36.3 % (42.0-52.0); HEMOGLOBIN 11.3 g/dl (14.0-17.9); LYMPHOCYTES % (AUTO) 4.7 % (21-51); MEAN CORPUSCULAR HEMOGLOBIN 23.9 PG (27.0-31.0); MEAN CORPUSCULAR HGB CONC 31.2 g/dL (33.0-36.5); MEAN CORPUSCULAR VOLUME 76.7 FL (78-98); MEAN PLATELET VOLUME 9.5 FL (7.4-10.4); MONOCYTES # (AUTO) 1.3 X10'3 (0-0.9); MONOCYTES % (AUTO) 6.3 % (2-12); NEUTROPHILS # (AUTO) 18.1 X10'3 (1.8-7.7); NEUTROPHILS % (AUTO) 88.8 % (42-75); PLATELET COUNT 321 X10'3 (140-440); RED BLOOD COUNT 4.72 X10'6 (4.70-6.10); RED CELL DISTRIBUTION WIDTH 16.8 % (11.5-14.5); WHITE BLOOD COUNT 20.4 X10'3 (4.5-11.0)
[2021-01-25 08:14] LABS: ALBUMIN 2.6 G/DL (3.4-5.0); ANION GAP 10 (8-16); BLOOD UREA NITROGEN 15 MG/DL (7-18); BUN/CREATININE RATIO 25.4 (5.4-32.0); CALCIUM 8.1 MG/DL (8.5-10.1); CHLORIDE 102 MMOL/L (99-107); CREATININE 0.59 MG/DL (0.60-1.10); GLUCOSE 96 MG/DL (70-104); POTASSIUM 3.5 MMOL/L (3.5-5.1); SODIUM 137 MMOL/L (135-145); TOTAL CARBON DIOXIDE 24.7 MMOL/L (24-32); eGFR > 90 ML/MIN
[2021-01-25] MEDS ORDERED: cefepime 2g/NS 100ml ADVANTAGE 100 ML IV SCH (08:35)
[2021-01-25] MEDS ORDERED: CEFEPIME IV SCH (08:36)
[2021-01-25] MEDS ORDERED: [UNRECOGNIZED DRUG - OTHER] IV SCH (08:36)
[2021-01-25] MEDS: CEFEPIME 2gm in D5W 50mL 50 ML IV SCH ×2 (08:42→19:25)
[2021-01-25 09:07] LABS: ALANINE AMINOTRANSFERASE 24 U/L (12-78); ALBUMIN/GLOBULIN RATIO 0.6 (1.1-1.5); ALKALINE PHOSPHATASE 78 IU/L (46-116); ASPARTATE AMINO TRANSFERASE 20 U/L (10-37); BILIRUBIN,TOTAL 0.5 MG/DL (0.1-1.0); TOTAL PROTEIN 7.3 G/DL (6.4-8.2)
[2021-01-25 11:00] VITALS: BP_SYST 107; BP_SYST 142; BP_DIAS 49; BP_DIAS 91
[2021-01-25] MEDS: HYDROcodone/acetaminophen 5mg/325mg tablet PO PRN ×3 (12:13→19:23)
[2021-01-25 15:00] VITALS: BP 153/91
[2021-01-25] MEDS: vancomycin/NS 1 GM ADD-VANTAGE 250 ML IV SCH (16:10)
[2021-01-25 18:00] VITALS: BP 111/47
[2021-01-25] MEDS: lactobacillus rhamnosus 10,000 MMU CELLS/CAPSULE PO SCH (19:25)
[2021-01-25 22:00] VITALS: BP 104/52
[2021-01-26] MEDS: normal saline 1000ml 1,000 ML IV SCH ×3 (01:35→21:35)
[2021-01-26 02:00] VITALS: BP 155/87
--- NOTE | 2021-01-26 06:44 | NUR ---
Patient in room PCU 3013. I have received report from Alexsandra JADE and had the opportunity to ask questions and assume patient care. pt semi fowlers in bed, alert to voice, pt repositioned, given p.o. fluids per request. TV adjusted for sight/audio. Pt denies pain at this time. safety measures in place. no s/sx acute distress.
[2021-01-26 07:00] VITALS: BP 154/58
--- NOTE | 2021-01-26 07:10 | NUR ---
Pt febrile at 101.5 axillary, 102.4 orally. pt not diaphoretic, denies feeling febrile, no chills. blankets removed, sheet remains, cooling measures implemented.
--- NOTE | 2021-01-26 07:16 | NUR ---
Pt febrile. Dr Wayne paged. "PAGER ID: [phone] MESSAGE: RE: Ajay Ye: 3013B: TEMP: 102.4. no Tylenol on order list. WBC 20.4 (down from 24). VS: 75; 20; 92%; 154/58. please advise: -Diandra #[id number]"
[2021-01-26] MEDS ORDERED: VANCOMYCIN LEVEL IV ONE (07:30)
--- NOTE | 2021-01-26 07:31 | NUR ---
Dr. Wayne paged again. "PAGER ID: [phone] MESSAGE: re: Ajay Ye: 3013B: TEMP 102.5 orally. Tylenol order? please advise -Diandra #[id number]"
--- NOTE | 2021-01-26 07:44 | NUR ---
Dr Wayne called back Tylenol order exists, tylenol administered.
[2021-01-26] MEDS: K and/or MAG REPLACEMENT MC SCH ×2 (08:00→20:00)
[2021-01-26] MEDS: CEFEPIME 2gm in D5W 50mL 50 ML IV SCH (08:17)
[2021-01-26] MEDS: acetaminophen 325mg tablet PO PRN (08:18)
[2021-01-26] MEDS: lactobacillus rhamnosus 10,000 MMU CELLS/CAPSULE PO SCH ×2 (08:18→20:14)
--- NOTE | 2021-01-26 08:53 | NUR ---
Dr. Wayne to floor. Pt temp re-eval'd. 103.1 orally. new order received for ibuprofen 600mg Q6hr prn temp>101. (give with food)
[2021-01-26] MEDS: ibuprofen 200mg tablet PO PRN ×3 (09:13→23:27)
--- NOTE | 2021-01-26 09:15 | NUR ---
Called pharmacy for scheduled vanco dose and notified that dose not present on the floor but needed adonis. Per pharmacy they will bring it up now.
--- NOTE | 2021-01-26 09:19 | NUR ---
discussed pt status with Dr. Wayne. MD declined wanting lactic or procalcitonin labs ordered, reviewed blood cultures with no growth after in preliminary report, and MD indicated he was going to re-evaluate antibiotics. MD notified that vanco about to be administered and in agreement with this dose for now. pt supine in bed, ice packs under armpits, behind knees, ice water cloth bath given. pt alert to voice, napping on and off while watching TV. VS holding stable.
[2021-01-26 09:22] LABS: BASOPHILS # (AUTO) 0.1 X10'3 (0-0.2); BASOPHILS % (AUTO) 0.4 % (0-1); EOSINOPHILS % (AUTO) 0.3 % (0-6); HEMATOCRIT 33.3 % (42.0-52.0); HEMOGLOBIN 10.5 g/dl (14.0-17.9); LYMPHOCYTES # (AUTO) 1.2 X10'3 (1.1-4.8); LYMPHOCYTES % (AUTO) 10.3 % (21-51); MEAN CORPUSCULAR HEMOGLOBIN 23.8 PG (27.0-31.0); MEAN CORPUSCULAR HGB CONC 31.7 g/dL (33.0-36.5); MEAN CORPUSCULAR VOLUME 75.1 FL (78-98); MEAN PLATELET VOLUME 9.2 FL (7.4-10.4); MONOCYTES # (AUTO) 1.3 X10'3 (0-0.9); MONOCYTES % (AUTO) 10.6 % (2-12); NEUTROPHILS # (AUTO) 9.3 X10'3 (1.8-7.7); NEUTROPHILS % (AUTO) 78.4 % (42-75); PLATELET COUNT 301 X10'3 (140-440); RED BLOOD COUNT 4.43 X10'6 (4.70-6.10); RED CELL DISTRIBUTION WIDTH 16.8 % (11.5-14.5); WHITE BLOOD COUNT 11.8 X10'3 (4.5-11.0)
[2021-01-26] MEDS: vancomycin/NS 1 GM ADD-VANTAGE 250 ML IV SCH ×2 (09:24)
[2021-01-26 09:36] LABS: ALBUMIN 2.3 G/DL (3.4-5.0); ANION GAP 10 (8-16); BLOOD UREA NITROGEN 10 MG/DL (7-18); BUN/CREATININE RATIO 17.5 (5.4-32.0); CALCIUM 8.1 MG/DL (8.5-10.1); CHLORIDE 105 MMOL/L (99-107); CREATININE 0.57 MG/DL (0.60-1.10); GLUCOSE 115 MG/DL (70-104); POTASSIUM 3.8 MMOL/L (3.5-5.1); SODIUM 140 MMOL/L (135-145); TOTAL CARBON DIOXIDE 25.1 MMOL/L (24-32); VANCOMYCIN,TROUGH 5.4 UG/ML (6.0-14.0); eGFR > 90 ML/MIN
[2021-01-26 11:00] VITALS: BP 126/66
[2021-01-26] MEDS: spironolactone 25 MG tablet PO SCH (12:38)
[2021-01-26] MEDS: oxybutynin 5mg tablet PO SCH ×2 (12:39→20:18)
[2021-01-26] MEDS: baclofen 10mg tablet PO SCH ×2 (12:39→20:19)
--- NOTE | 2021-01-26 13:56 | NUR ---
Paged PICC nurse for assistance with PIV and or extended IV placement. attempts to place iv unsuccessful by this nurse. additional nurse Aubrie JADE visualized BUE and was unable to locate a prime location for PIV.
--- NOTE | 2021-01-26 14:49 | NUR ---
Anthony Consult: Anthony 10; skin intact per EMR. Pt admit DX sepsis r/t RLE cellulitis, leukocytosis, and hx C6 incomplete quadriplegia per EMR. Pt refused first meal last night. RD d/w RN regarding texture modifications. RN reports pt is able to feed self does not like heart healthy diet meals having pizza and other foods brought in from outside. RD recommends regular diet if MD agreeable as pt has no cardiac PMH per EMR. LBM 01/24. Unable to calculate pt nutrition intake w/ outside foods though at least partially meeting needs given kcal-dense foods from outside. Will continue to monitor. Rec: 1. advance to regular diet; currently food from outside by family 2. monitor for additional protein/ONS needs given sepsis DX; unable to accurately determine nutrition intake w/ outside foods 3. routine bowel care 4. weekly wts Addendum: 01/26/21 at [address] Amended: Links added.
[2021-01-26 15:00] VITALS: BP 126/73
[2021-01-26] MEDS ORDERED: VANCOmycin 1250MG/NS 250ml Bag 250 ML IV SCH (16:00)
[2021-01-26] MEDS: ceFAZolin/D5W- 1GM premix 50 ML IV SCH ×2 (16:02→23:27)
[2021-01-26] MEDS: clindamycin 600mg/D5W 50ml 50 ML IV SCH ×2 (16:02→20:13)
[2021-01-26 18:00] VITALS: BP 143/95
--- NOTE | 2021-01-26 18:31 | NUR ---
Problems reprioritized. Patient report given, questions answered & plan of care reviewed with Tj JADE. Pt semi fowlers in bed, alert to voice, watching tv. no s/sx acute dsitress
[2021-01-26] MEDS: methenamine hippurate 1gm tablet PO SCH (20:13)
[2021-01-26] MEDS: pantoprazole 40mg Tablet.DR PO SCH (20:14)
[2021-01-26] MEDS: HYDROcodone/acetaminophen 5mg/325mg tablet PO PRN (20:40)
[2021-01-26 22:00] VITALS: BP 152/80
[2021-01-27] MEDS: clindamycin 600mg/D5W 50ml 50 ML IV SCH ×4 (01:03→19:58)
[2021-01-27 02:00] VITALS: BP 118/62
[2021-01-27 06:00] VITALS: BP 151/89
[2021-01-27] MEDS: ceFAZolin/D5W- 1GM premix 50 ML IV SCH ×2 (07:47→16:00)
[2021-01-27] MEDS: lactobacillus rhamnosus 10,000 MMU CELLS/CAPSULE PO SCH ×2 (07:47→19:59)
[2021-01-27] MEDS: baclofen 10mg tablet PO SCH ×3 (07:48→20:05)
[2021-01-27] MEDS: pantoprazole 40mg Tablet.DR PO SCH ×2 (07:48→20:00)
[2021-01-27] MEDS: oxybutynin 5mg tablet PO SCH ×3 (07:48→20:00)
[2021-01-27] MEDS: spironolactone 25 MG tablet PO SCH (07:49)
[2021-01-27] MEDS: methenamine hippurate 1gm tablet PO SCH ×2 (07:51→20:00)
[2021-01-27] MEDS: MELOXICAM 15 MG PO SCH (08:00)
[2021-01-27] MEDS: K and/or MAG REPLACEMENT MC SCH ×2 (08:18→18:47)
[2021-01-27] MEDS: normal saline 1000ml 1,000 ML IV SCH ×2 (08:20→17:50)
[2021-01-27 09:09] LABS: BASOPHILS # (AUTO) 0.1 X10'3 (0-0.2); BASOPHILS % (AUTO) 0.6 % (0-1); EOSINOPHILS # (AUTO) 0.2 X10'3 (0-0.9); EOSINOPHILS % (AUTO) 1.8 % (0-6); HEMATOCRIT 31.5 % (42.0-52.0); HEMOGLOBIN 10.1 g/dl (14.0-17.9); LYMPHOCYTES % (AUTO) 10.6 % (21-51); MEAN CORPUSCULAR HEMOGLOBIN 24.1 PG (27.0-31.0); MEAN CORPUSCULAR HGB CONC 32.1 g/dL (33.0-36.5); MEAN CORPUSCULAR VOLUME 75.2 FL (78-98); MEAN PLATELET VOLUME 9.3 FL (7.4-10.4); MONOCYTES # (AUTO) 1.2 X10'3 (0-0.9); MONOCYTES % (AUTO) 12.6 % (2-12); NEUTROPHILS # (AUTO) 6.9 X10'3 (1.8-7.7); NEUTROPHILS % (AUTO) 74.4 % (42-75); PLATELET COUNT 314 X10'3 (140-440); RED BLOOD COUNT 4.19 X10'6 (4.70-6.10); RED CELL DISTRIBUTION WIDTH 16.7 % (11.5-14.5); WHITE BLOOD COUNT 9.3 X10'3 (4.5-11.0)
[2021-01-27 09:14] LABS: ALBUMIN 2.3 G/DL (3.4-5.0); ANION GAP 12 (8-16); BLOOD UREA NITROGEN 9 MG/DL (7-18); BUN/CREATININE RATIO 16.1 (5.4-32.0); CALCIUM 8.1 MG/DL (8.5-10.1); CHLORIDE 105 MMOL/L (99-107); CREATININE 0.56 MG/DL (0.60-1.10); GLUCOSE 68 MG/DL (70-104); MAGNESIUM 1.8 MG/DL (1.5-2.4); POTASSIUM 3.2 MMOL/L (3.5-5.1); SODIUM 141 MMOL/L (135-145); TOTAL CARBON DIOXIDE 24.4 MMOL/L (24-32); eGFR > 90 ML/MIN
[2021-01-27] MEDS: potassium Cl 20 mEq SR tablet PO PRN ×2 (10:56→14:50)
[2021-01-27 11:00] VITALS: BP 136/81
[2021-01-27] MEDS: acetaminophen 325mg tablet PO PRN ×3 (13:27→19:59)
[2021-01-27 15:00] VITALS: BP 172/107
[2021-01-27] MEDS ORDERED: VANCOMYCIN LEVEL IV ONE (15:30)
[2021-01-27 18:00] VITALS: BP 139/81
--- NOTE | 2021-01-27 18:15 | NUR ---
Patient in room U 3013. I have received report from YASMANY Mcmahan and had the opportunity to ask questions and assume patient care. Introduced myself to patient, patient laying in bed with no signs of distress. Bed lower and locked, call light within reach, and side rails up. Will continue to monitor.
[2021-01-27] MEDS ORDERED: potassium Cl 20 mEq SR tablet PO PRN ×2 (19:45)
[2021-01-27] MEDS ORDERED: magnesium 4gm in 100ml NS 100 ML IV PRN (19:45)
[2021-01-27] MEDS ORDERED: magnesium Cl slow-release 64mg tablet PO PRN (19:45)
[2021-01-27] MEDS ORDERED: potassium Cl 40MEQ/1/2NS 520ml 520 ML IV PRN (19:45)
[2021-01-27 22:00] VITALS: BP 127/65
[2021-01-28] MEDS: ceFAZolin/D5W- 1GM premix 50 ML IV SCH ×3 (00:16→16:27)
[2021-01-28] MEDS: normal saline 1000ml 1,000 ML IV SCH ×3 (00:17→23:35)
[2021-01-28 02:00] VITALS: BP 136/66
[2021-01-28] MEDS: clindamycin 600mg/D5W 50ml 50 ML IV SCH ×4 (02:44→22:22)
--- NOTE | 2021-01-28 03:31 | NUR ---
reviewed and edited SRN assessment
[2021-01-28 06:00] VITALS: BP 131/60
--- NOTE | 2021-01-28 06:10 | NUR ---
Problems reprioritized. Patient report given, questions answered & plan of care reviewed with YASMANY Henriquez.
[2021-01-28 06:49] LABS: BASOPHILS # (AUTO) 0.1 X10'3 (0-0.2); BASOPHILS % (AUTO) 0.7 % (0-1); EOSINOPHILS # (AUTO) 0.4 X10'3 (0-0.9); EOSINOPHILS % (AUTO) 4.1 % (0-6); HEMATOCRIT 30.1 % (42.0-52.0); HEMOGLOBIN 9.7 g/dl (14.0-17.9); LYMPHOCYTES # (AUTO) 1.2 X10'3 (1.1-4.8); LYMPHOCYTES % (AUTO) 13.4 % (21-51); MEAN CORPUSCULAR HEMOGLOBIN 23.9 PG (27.0-31.0); MEAN CORPUSCULAR HGB CONC 32.2 g/dL (33.0-36.5); MEAN PLATELET VOLUME 8.8 FL (7.4-10.4); NEUTROPHILS # (AUTO) 6.4 X10'3 (1.8-7.7); NEUTROPHILS % (AUTO) 70.8 % (42-75); PLATELET COUNT 340 X10'3 (140-440); RED BLOOD COUNT 4.06 X10'6 (4.70-6.10); RED CELL DISTRIBUTION WIDTH 17.1 % (11.5-14.5)
[2021-01-28 07:13] LABS: ALBUMIN 2.1 G/DL (3.4-5.0); ANION GAP 14 (8-16); BLOOD UREA NITROGEN 6 MG/DL (7-18); CALCIUM 7.9 MG/DL (8.5-10.1); CHLORIDE 104 MMOL/L (99-107); CREATININE 0.46 MG/DL (0.60-1.10); GLUCOSE 72 MG/DL (70-104); MAGNESIUM 1.9 MG/DL (1.5-2.4); POTASSIUM 3.5 MMOL/L (3.5-5.1); SODIUM 140 MMOL/L (135-145); TOTAL CARBON DIOXIDE 22.2 MMOL/L (24-32); eGFR > 90 ML/MIN
[2021-01-28] MEDS: MELOXICAM 15 MG PO SCH (08:00)
[2021-01-28] MEDS: K and/or MAG REPLACEMENT MC SCH ×2 (08:00→20:00)
[2021-01-28] MEDS: methenamine hippurate 1gm tablet PO SCH ×2 (09:00→22:23)
[2021-01-28] MEDS: spironolactone 25 MG tablet PO SCH (09:01)
[2021-01-28] MEDS: pantoprazole 40mg Tablet.DR PO SCH ×2 (09:01→22:22)
[2021-01-28] MEDS: oxybutynin 5mg tablet PO SCH ×3 (09:01→22:22)
[2021-01-28] MEDS: baclofen 10mg tablet PO SCH ×3 (09:01→22:22)
[2021-01-28] MEDS: lactobacillus rhamnosus 10,000 MMU CELLS/CAPSULE PO SCH ×2 (09:01→22:23)
--- NOTE | 2021-01-28 10:30 | NUR ---
0930- up to toile with PT and an EZ lift. pt reports the jamie doesn't work as well- cant raise high enough. After BM return to bed to be cleaned and dressed. then up to electric wheel chair at 1030 by request. f/c to gravity. set up to eat
[2021-01-28 11:00] VITALS: BP 138/76
[2021-01-28 15:00] VITALS: BP 109/64
--- NOTE | 2021-01-28 15:29 | NUR ---
Wound care- R foot-dressing soaked through with serous fluid. Stripped, rinsed with sterile saline, and applied petroleum gauze, 4x4 gauze, abd's and wrapped in Curlex gauze. pt jennifer well. blisters still intact
[2021-01-28 18:00] VITALS: BP 101/65
--- NOTE | 2021-01-28 18:15 | NUR ---
Problems reprioritized. Patient report given, questions answered & plan of care reviewed with Clarice JADE.
[2021-01-28 22:00] VITALS: BP 114/68
[2021-01-29] MEDS: ceFAZolin/D5W- 1GM premix 50 ML IV SCH ×2 (00:23→10:04)
[2021-01-29 02:00] VITALS: BP 116/72
[2021-01-29] MEDS: clindamycin 600mg/D5W 50ml 50 ML IV SCH ×2 (03:06→08:22)
[2021-01-29] MEDS: normal saline 1000ml 1,000 ML IV SCH (03:06)
[2021-01-29 07:10] LABS: BASOPHILS # (AUTO) 0.1 X10'3 (0-0.2); BASOPHILS % (AUTO) 0.5 % (0-1); EOSINOPHILS # (AUTO) 0.5 X10'3 (0-0.9); EOSINOPHILS % (AUTO) 3.7 % (0-6); HEMATOCRIT 31.9 % (42.0-52.0); HEMOGLOBIN 10.3 g/dl (14.0-17.9); LYMPHOCYTES # (AUTO) 1.3 X10'3 (1.1-4.8); LYMPHOCYTES % (AUTO) 9.4 % (21-51); MEAN CORPUSCULAR HEMOGLOBIN 23.8 PG (27.0-31.0); MEAN CORPUSCULAR HGB CONC 32.1 g/dL (33.0-36.5); MEAN CORPUSCULAR VOLUME 74.1 FL (78-98); MEAN PLATELET VOLUME 8.4 FL (7.4-10.4); MONOCYTES % (AUTO) 7.2 % (2-12); NEUTROPHILS # (AUTO) 10.8 X10'3 (1.8-7.7); NEUTROPHILS % (AUTO) 79.2 % (42-75); PLATELET COUNT 408 X10'3 (140-440); WHITE BLOOD COUNT 13.6 X10'3 (4.5-11.0)
[2021-01-29 07:15] LABS: ALBUMIN 2.4 G/DL (3.4-5.0); ANION GAP 9 (8-16); BLOOD UREA NITROGEN 7 MG/DL (7-18); BUN/CREATININE RATIO 13.5 (5.4-32.0); CALCIUM 8.2 MG/DL (8.5-10.1); CHLORIDE 106 MMOL/L (99-107); CREATININE 0.52 MG/DL (0.60-1.10); GLUCOSE 90 MG/DL (70-104); MAGNESIUM 1.8 MG/DL (1.5-2.4); POTASSIUM 3.5 MMOL/L (3.5-5.1); SODIUM 140 MMOL/L (135-145); TOTAL CARBON DIOXIDE 25.2 MMOL/L (24-32); eGFR > 90 ML/MIN
[2021-01-29 08:00] VITALS: BP 113/86
[2021-01-29] MEDS: MELOXICAM 15 MG PO SCH (08:00)
[2021-01-29] MEDS: K and/or MAG REPLACEMENT MC SCH (08:00)
[2021-01-29] MEDS: lactobacillus rhamnosus 10,000 MMU CELLS/CAPSULE PO SCH (08:22)
[2021-01-29] MEDS: methenamine hippurate 1gm tablet PO SCH (08:22)
[2021-01-29] MEDS: spironolactone 25 MG tablet PO SCH (08:23)
[2021-01-29] MEDS: oxybutynin 5mg tablet PO SCH ×2 (08:23→12:58)
[2021-01-29] MEDS: pantoprazole 40mg Tablet.DR PO SCH (08:23)
[2021-01-29] MEDS: baclofen 10mg tablet PO SCH ×2 (08:24→12:58)
[2021-01-29] MEDS ORDERED: CEPH-585 PO (10:42)
[2021-01-29] MEDS ORDERED: CLIN-97 PO (10:42)
[2021-01-29 11:59] VITALS: BP 134/84
--- NOTE | 2021-01-29 13:50 | NUR ---
Patient stable for discharge per MD orders. All discharge instructions reviewed with patient and all questions answered. New prescriptions were sent electronically to pharmacy. PIV discontinued, cannula intact. Belongings collected and sent with patient. Patient picked up by private van. Patient wheeled to lobby by personal electronic wheelchair via nursing staff.
== END 2021-01-29 13:50 | disposition home or self-care (01) | DRG 720 ==
LOC: ER 14:26 → ED HOLD 19:38 → PCU 3S 01-25 00:07
PROVIDERS: ADMIT Internal Medicine; ATTEND Family Medicine
PROC: B42F1ZZ Computerized Tomography (CT Scan) of Right Lower Extremity Arteries using Low Osmolar Contrast (ICD-10-PCS; principal; 2021-01-24)
DX: A41.9 Sepsis, unspecified organism (principal); G82.50 Quadriplegia, unspecified; L97.519 Non-pressure chronic ulcer of other part of right foot with unspecified severity; S91.301A Unspecified open wound, right foot, initial encounter; F12.90 Cannabis use, unspecified, uncomplicated; X58.XXXA Exposure to other specified factors, initial encounter; L03.115 Cellulitis of right lower limb; K21.9 Gastro-esophageal reflux disease without esophagitis; L97.529 Non-pressure chronic ulcer of other part of left foot with unspecified severity; Z86.16 Personal history of COVID-19; Z90.49 Acquired absence of other specified parts of digestive tract; Y93.89 Activity, other specified; Y92.89 Other specified places as the place of occurrence of the external cause; Y99.8 Other external cause status
CPT/HCPCS: 36415; 73590; 73630; 73701; 80048; 80053; 80202; 81001; 83605; 83735; 84145; 85025; 86140; 87040; 87081; 87088; 96374; 96375; 97162; 97530; 99285; G0378; J0690; J0692; J2543; J3370; J3490; J7030; Q9967